=== PATIENT | male | born 1960 | race Caucasian/White ===

== ENCOUNTER 2016-07-14 10:20 | Emergency (ER) | payer OTHER ==
[2016-07-14 11:16] VITALS: BP 146/93
--- NOTE | 2016-07-14 11:49 | UC ---
Throat Pain/Nasal Sven HPI - HPI Summary HPI Summary: 2 weeks of worsening sinus pain and congestion, no fevers---has tried zyrtec without much relief - History of Current Complaint Chief Complaint: UCRespiratory Stated Complaint: SINUS COMPLAINT Time Seen by Provider: 07/14/16 11:44 Hx Obtained From: Patient Onset/Duration: Gradual Onset, Lasting Weeks - 2, Still Present Severity: Moderate Pain Intensity: 6 Pain Scale Used: 0-10 Numeric Associated Signs & Symptoms: Positive: Sinus Discomfort - Allergies/Home Medications Allergies/Adverse Reactions: Allergies Allergy/AdvReac Type Severity Reaction Status Date / Time Metformin Allergy Mild Diarrhea Verified 11/12/15 19:39 Ramipril [From Altace] AdvReac Mild Coughing Verified 11/12/15 19:39 PMH/Surg Hx/FS Hx/Imm Hx Previously Healthy: No Endocrine History Of: Reports: Diabetes - TYPE II--recent a1c 10.2, dose of insulin increased. Denies: Thyroid Disease Cardiovascular History Of: Reports: Hypertension - ON MEDICATION Denies: Cardiac Disorders Respiratory History Of: Reports: Asthma - A CHILD, Bronchitis - hx Denies: COPD GI/ History Of: Reports: Kidney Stones - 2000 Denies: Ulcer Neurological History Of: Reports: Migraine - 1x/month - Surgical History Surgical History: Yes Surgery Procedure, Year, and Place: RIGHT SHOULDER SURGERY. Right elbow surgery August 2013. CATARACT LEFT EYE- 2012. HYPOSPADIA SURGERY A CHILD. TONSILLECTOMY CHILD - Family History Known Family History: Positive: None, Hypertension, Diabetes - Social History Occupation: Employed Full-time Lives: With Family Alcohol Use: Rare Alcohol Amount: 1 Substance Use Type: None Smoking Status (MU): Never Smoked Tobacco Have You Smoked in the Last Year: No Household Exposure Type: Cigarettes - Immunization History Most Recent Influenza Vaccination: 01/14/2013 Most Recent Tetanus Shot: 2010 Most Recent Pneumonia Vaccination: none Review of Systems Constitutional: Fatigue Skin: Negative Eyes: Negative ENT: Ear Ache Respiratory: Negative Cardiovascular: Negative Gastrointestinal: Negative Genitourinary: Negative Motor: Negative Neurovascular: Negative Musculoskeletal: Negative Neurological: Headache - Maxillary sinus Psychological: Negative All Other Systems Reviewed And Are Negative: Yes Physical Exam Triage Information Reviewed: Yes Appearance: Well-Appearing, No Pain Distress, Well-Nourished Vital Signs: Initial Vital Signs Temp 97.2 F 07/14/16 11:11 Pulse 92 07/14/16 11:11 Resp 18 07/14/16 11:11 BP 146/93 07/14/16 11:11 Pulse Ox 97 07/14/16 11:11 Vital Signs Reviewed: Yes Eye Exam: Normal Eyes: Positive: Conjunctiva Clear ENT Exam: Normal ENT: Positive: Normal ENT inspection, Hearing grossly normal, Pharynx normal, TMs normal. Negative: Nasal congestion, Nasal drainage, Tonsillar swelling, Tonsillar exudate, Trismus, Muffled/hoarse voice Dental Exam: Normal Neck exam: Normal Neck: Positive: Supple, Nontender, No Lymphadenopathy Respiratory Exam: Normal Respiratory: Positive: Chest non-tender, Lungs clear, Normal breath sounds, No respiratory distress, No accessory muscle use Cardiovascular Exam: Normal Cardiovascular: Positive: RRR, No Murmur, Pulses Normal, Brisk Capillary Refill Musculoskeletal Exam: Normal Musculoskeletal: Positive: Strength Intact, ROM Intact, No Edema Neurological Exam: Normal Neurological: Positive: Alert, Muscle Tone Normal Psychological Exam: Normal Skin Exam: Normal Throat Pain/Nasal Course/Dx - Course Assessment/Plan: flnase, augmentin, mucinex d increase fluids, follow up with pcp - Differential Dx/Diagnosis Differential Diagnosis/HQI/PQRI: Pharyngitis, Sinusitis, URI Provider Diagnoses: Acute rhinnosinusitis, hypertension with a history on treatment Discharge - Discharge Plan Condition: Stable Disposition: HOME Prescriptions: Amoxicillin/Clavulanate TAB* [Augmentin TAB 875*] 875 mg PO BID #20 tab Fluticasone NASAL SPRAY 50MCG* [Flonase NASAL SPRAY 50MCG*] 2 spray BOTH NARES DAILY #1 btl Patient Education Materials: Rhinosinusitis (ED), Chronic Hypertension (ED), DASH Eating Plan (ED), How to Use Nasal [place] (ED) Referrals: Herbie Courtney MD [Primary Care Provider] - 2 Weeks (for blood pressure management and re-check)
== END 2016-07-14 12:03 | disposition home or self-care (01) ==
LOC: UCEAST 10:20
DX: J01.90 Acute sinusitis, unspecified (principal); E11.9 Type 2 diabetes mellitus without complications; I10 Essential (primary) hypertension; G43.909 Migraine, unspecified, not intractable, without status migrainosus; Z87.442 Personal history of urinary calculi; Z87.891 Personal history of nicotine dependence
CPT/HCPCS: 99212; G0463

== ENCOUNTER 2017-02-14 10:41 | Emergency (ER) | payer OTHER ==
--- NOTE | 2017-02-14 10:56 | UC ---
Respiratory Complaint HPI - HPI Summary HPI Summary: Pt presents with non-productive cough, chest congestion, sinus pain/pressure/ congestion for 10 days. Feels pain in his chest when he coughs. Has been taking an OTC cold and flu medication with little relief - unsure of ingredients. Denies sick contacts. No recent travel. No fevers or chills. No pain, N/V/D/C. BP is elevated at today's visit. Pt says he takes Losartan, but has not over the past few days due to illness. No headache, dizziness, change in vision, palpitations, or chest pain. - History of Current Complaint Chief Complaint: UCRespiratory Stated Complaint: COUGH HEAD/CHEST CONGESTION Time Seen by Provider: 02/14/17 10:56 Hx Obtained From: Patient Onset/Duration: Gradual Onset Timing: Constant Severity Initially: Mild Severity Currently: Moderate Character: Cough: Nonproductive Aggravating Factors: Exertion, Deep Breaths Alleviating Factors: OTC Meds Associated Signs And Symptoms: Positive: Pleuritic Chest Pain, URI, Sinus Discomfort. Negative: Dyspnea, Fever, Chills, Wheezing, Edema - Allergies/Home Medications Allergies/Adverse Reactions: Allergies Allergy/AdvReac Type Severity Reaction Status Date / Time Metformin Allergy Mild Diarrhea Verified 02/14/17 10:52 Ramipril [From Altace] AdvReac Mild Coughing Verified 02/14/17 10:52 PMH/Surg Hx/FS Hx/Imm Hx Previously Healthy: Yes Endocrine History: Diabetes, Dyslipidemia Cardiovascular History: Hypertension - Surgical History Surgical History: Yes Surgery Procedure, Year, and Place: RIGHT SHOULDER SURGERY. Right elbow surgery August 2013. CATARACT LEFT EYE- 2012. HYPOSPADIA SURGERY A CHILD. TONSILLECTOMY CHILD - Family History Known Family History: Positive: None, Hypertension, Diabetes - Social History Occupation: Employed Full-time Lives: With Family Alcohol Use: Rare Alcohol Amount: 1 Substance Use Type: None Smoking Status (MU): Never Smoked Tobacco Have You Smoked in the Last Year: No Household Exposure Type: Cigarettes - Immunization History Most Recent Influenza Vaccination: 01/14/2013 Most Recent Tetanus Shot: 2010 Most Recent Pneumonia Vaccination: none Review of Systems Constitutional: Negative Skin: Negative Eyes: Negative ENT: Sore Throat, Ear Ache, Nasal Discharge, Sinus Congestion, Sinus Pain/ Tenderness Respiratory: Shortness Of Breath, Cough Cardiovascular: Negative Gastrointestinal: Negative Neurological: Negative Psychological: Negative All Other Systems Reviewed And Are Negative: Yes Physical Exam Triage Information Reviewed: Yes Appearance: Well-Appearing, Well-Nourished Vital Signs Reviewed: Yes Eyes: Positive: Conjunctiva Clear, Other: - No papilledema ENT: Positive: Pharynx normal, Nasal congestion, Nasal drainage, TMs normal, TM bulging, TM dull, TM red, Sinus tenderness. Negative: Pharyngeal erythema, Tonsillar swelling, Tonsillar exudate Neck: Positive: Supple, Nontender, No Lymphadenopathy Respiratory: Positive: Chest non-tender, No respiratory distress, No accessory muscle use, Wheezing - Throughout. Negative: Crackles, Rhonchi Cardiovascular: Positive: RRR, No Murmur Neurological: Positive: Alert Psychological: Positive: Age Appropriate Behavior Skin: Negative: rashes Respiratory Course/Dx - Course Course Of Treatment: CXR negative today. Z-charmaine and Atrovent. In regards to his elevated BP - he is asymptomatic today. Will advise to take your at home BP medications and f/u with your PCP. - Differential Dx/Diagnosis Differential Diagnosis/HQI/PQRI: Bronchitis, Influenza, Lower Resp Infection, Sinusitis, Other - Pneumonia. Provider Diagnoses: Acute Bronchitis. Sinusitis. Elevated Blood Pressure Discharge - Discharge Plan Condition: Stable Disposition: HOME Prescriptions: Azithromyxin CHARMAINE (NF) [Z-Charmaine (Zithromax) 250 mg tabs #6] 2 tab PO .TODAY, THEN 1 DAILY #6 tab Ipratropium HFA INHALER(NF) [Atrovent Hfa Inhaler(NF)] 1 puff INH Q6H #1 mdi Patient Education Materials: Acute Bronchitis (ED) Referrals: Herbie Courtney MD [Primary Care Provider] - Additional Instructions: 1) Z-charmaine take as directed 2) Atrovent inhaler. One puff every 6 hours as needed for SOB/Cough/Wheezing. 3) Mucinex OTC 4) Resume your at home blood pressure medications and follow up with your PCP regarding your elevated blood pressure. If you develop a fever, SOB, chest pain, new or worsening symptoms - please call our office or go to ED
[2017-02-14 10:58] VITALS: BP 190/100
--- NOTE | 2017-02-14 11:46 | RAD ---
INDICATION: Cough COMPARISON: December 09, 2014 TECHNIQUE: PA and lateral dual-energy views were obtained. FINDINGS: Bones/Soft Tissues: There are no acute bony findings. Cardiomediastinal: The cardiomediastinal silhouette is normal. Lungs: There are no infiltrates. Pleura: There are no pleural effusions. Other: None IMPRESSION: NO ACTIVE DISEASE.
== END 2017-02-14 12:02 | disposition home or self-care (01) ==
LOC: UCEAST 10:41
DX: J20.9 Acute bronchitis, unspecified (principal); E11.9 Type 2 diabetes mellitus without complications; E78.5 Hyperlipidemia, unspecified; I10 Essential (primary) hypertension; J32.9 Chronic sinusitis, unspecified; R03.0 Elevated blood-pressure reading, without diagnosis of hypertension
CPT/HCPCS: 71020; 99212; G0463

== ENCOUNTER 2017-09-16 15:35 | Emergency (ER) | payer OTHER ==
[2017-09-16 17:02] LABS: ABS Basophils 0.1 10^3/ul (0-0.2); ABS Eosinophils 0.4 10^3/ul (0-0.6); ABS Lymphocytes 1.9 10^3/ul (1.0-4.8); ABS Monocytes 0.7 10^3/ul (0-0.8); ABS Neutrophils 7.1 10^3/ul (1.5-7.7); ABS Nucleated RBC 0 10^3/ul; Eosinophil % 3.8 % (0-6); Hematocrit 46 % (42-52); Lymphocyte % 18.4 % (25-47); Mean Corpuscular HGB Conc 35 g/dl (31-36); Mean Corpuscular Hemoglobin 32 pg (27-31); Mean Corpuscular Volume 93 fL (80-94); Mean Platelet Volume 7.5 um3 (7.4-10.4); Nucleated Red Blood Cells % 0; Platelet Count 208 10^3/ul (150-450); Red Blood Count 4.94 10^6/ul (4.0-5.4); Red Cell Distribution Width 14 % (10.5-15); White Blood Count 10.1 10^3/ul (3.5-10.8)
--- NOTE | 2017-09-16 17:05 | RAD ---
Indication: RIGHT hip pain and tenderness for 2 days without known injury. Previous dislocation. Unable to bear weight. Comparison: November 29, 2013 CT Technique: AP pelvis and AP and frog-leg lateral views RIGHT hip. Report: The RIGHT hip is normally located. No RIGHT hip or pelvic fracture or stress reaction evident. Minimal osteophytosis and mild superior joint space narrowing. Small focus of calcific tendinopathy at the level of the RIGHT hip gluteus minimus adductor insertion at the inferior posterior aspect of the anterior facet of the greater trochanter based on correlation with prior CT. Additionally there is a small focus of calcific tendinopathy at the RIGHT iliopsoas tendon insertion at the lesser trochanter. Unremarkable soft tissue contours. IMPRESSION: Mild osteoarthritis of the RIGHT hip and evidence for calcific tendinopathy at the gluteus minimus and iliopsoas tendon insertions.
[2017-09-16 17:26] LABS: EGFR Non-African American 88.4 (>60)
[2017-09-16] MEDS ORDERED: Ketorolac INJ* 30 MG/ML 1 ML VIAL IM ONE (17:34)
[2017-09-16] MEDS ORDERED: LORazepam TAB(*) 1 MG PO ONE (17:34)
[2017-09-16] MEDS ORDERED: predniSONE TAB* 20 MG PO ONE (19:24)
[2017-09-16] MEDS ORDERED: HYDROcodone/ACETAMIN 5-325 MG* 1 TAB PO ONE (19:25)
[2017-09-16 19:55] VITALS: BP 168/87
--- NOTE | 2017-09-16 21:42 | ED ---
eLs Henry Natalie, scribed for Ignacio Montoya MD on 09/16/17 at 1744 . Lower Extremity - HPI Summary HPI Summary: The patient is a 56 y/o M presenting to the ED c/o aching RLE pain on in the hip starting yesterday at 18:00. He has had intermittent pain here before due to a previous hip dislocation, but it became constant and more prominent last night, rated 9/10 in severity. He states he has been doing yard work and moving up and down, which has caused him some pain, but not like it is currently. The pain is not alleviated by anything, and it is aggravated by any form of movement , so he has not been able to move it. He has taken Aleve to treat the pain at 03 :00 this morning. He also reports that he drove for five hours last night from [place], [place] while his leg was in pain. - History of Current Complaint Chief Complaint: EDExtremityLower Stated Complaint: RT HIP PAIN Time Seen by Provider: 09/16/17 16:30 Hx Obtained From: Patient Mechanism Of Injury: Unknown Severity Initially: Moderate Severity Currently: Severe Pain Intensity: 9 Pain Scale Used: 0-10 Numeric Timing: Constant Location: Is Discrete @ - right hip Character Of Pain: Aching Aggravating Factor(s): Movement Alleviating Factor(s): Rest Able to Bear Weight: No - Allergies/Home Medications Allergies/Adverse Reactions: Allergies Allergy/AdvReac Type Severity Reaction Status Date / Time metformin AdvReac Mild Diarrhea Verified 09/16/17 15:47 ramipril AdvReac Mild Coughing Verified 06/13/17 10:33 Home Medications: Home Medications Aspirin EC TAB* [Ecotrin EC Low Dose 81 MG*] 162 mg PO DAILY 09/16/17 [History Confirmed 09/16/17] Cetirizine* [ZyrTEC 10 MG TAB*] 10 mg PO DAILY 09/16/17 [History Confirmed 09/16] Insulin LISPRO* [HumaLOG*] 0 units SUBCUT AC 09/16/17 [History Confirmed ] PMH/Surg Hx/FS Hx/Imm Hx Endocrine/Hematology History: Reports: Hx Diabetes - TYPE II--recent a1c 10.2, dose of insulin increased. Denies: Hx Thyroid Disease Cardiovascular History: Reports: Hx Hypertension - ON MEDICATION Respiratory History: Reports: Hx Asthma - A CHILD, Hx Chronic Bronchitis - in the past Denies: Hx Chronic Obstructive Pulmonary Disease (COPD) GI History: Denies: Hx Ulcer History: Reports: Hx Kidney Stones - 2000 Musculoskeletal History: Reports: Hx Orthopedic Injury, Hx Tendonitis Comment Only: Other Musculoskeletal History - surgery right elbow/shoulder Sensory History: Reports: Hx Cataracts - L eye, Hx Contacts or Glasses - GLASSES Denies: Hx Hearing Aid Opthamlomology History: Reports: Hx Cataracts - L eye, Hx Contacts or Glasses - GLASSES Neurological History: Reports: Hx Migraine - 1x/month - Cancer History Cancer Type, Location and Year: Pt has had 3 biopsy on prostate through years, enlarged prostate. Negative for CA as of now. - Surgical History Surgery Procedure, Year, and Place: RIGHT SHOULDER SURGERY. Right elbow surgery August 2013. CATARACT LEFT EYE- 2012. HYPOSPADIA SURGERY A CHILD. TONSILLECTOMY CHILD Hx Anesthesia Reactions: No Infectious Disease History: No Infectious Disease History: Denies: Hx Clostridium Difficile, Hx Hepatitis, Hx Human Immunodeficiency Virus (HIV), Hx of Known/Suspected MRSA, Hx Shingles, Hx Tuberculosis, Hx Known/ Suspected VRE, Hx Known/Suspected VRSA, History Other Infectious Disease, Traveled Outside the [place] in Last 30 Days - Family History Known Family History: Positive: Hypertension, Diabetes - Social History Alcohol Use: Rare Alcohol Amount: 1 Substance Use Type: Reports: None Hx Tobacco Use: No Smoking Status (MU): Never Smoked Tobacco Have You Smoked in the Last Year: No Review of Systems Negative: Fever Positive: Decreased ROM, Other - pain in right hip All Other Systems Reviewed And Are Negative: Yes Physical Exam - Summary Physical Exam Summary: Appearance: The patient is well-nourished in no acute distress and in no acute pain. Skin: The skin is warm and dry and skin color reflects adequate perfusion. HEENT: The head is normocephalic and atraumatic. The pupils are equal and reactive. The conjunctivae are clear and without drainage. Nares are patent and without drainage. Mouth reveals moist mucous membranes and the throat is without erythema and exudate. The external ears are intact. The ear canals are patent and without drainage. The tympanic membranes are intact. Neck: The neck is supple with full range of motion and non-tender. There are no carotid bruits. There is no neck vein distension. Respiratory: Chest is non-tender. Lungs are clear to auscultation and breath sounds are symmetrical and equal. Cardiovascular: Heart is regular rate and rhythm. There is no murmur or rub auscultated. There is no peripheral edema and pulses are symmetrical and equal. Abdomen: The abdomen is soft and non-tender. There are normal bowel sounds heard in all four quadrants and there is no organomegaly palpated. Musculoskeletal: There is no back tenderness noted. Extremities are non-tender with full range of motion except there is tenderness to any ROM and palpation of the right hip. There is good capillary refill. There is no peripheral edema or calf tenderness elicited. Neurological: Patient is alert and oriented to person, place and time. The patient has symmetrical motor strength in all four extremities. Cranial nerves are grossly intact. Deep tendon reflexes are symmetrical and equal in all four extremities. Psychiatric: The patient has an appropriate affect and does not exhibit any anxiety or depression. Triage Information Reviewed: Yes Vital Signs On Initial Exam: Initial Vitals Temp Pulse Resp BP Pulse Ox 97.6 F 89 20 173/91 96 09/16/17 15:43 09/16/17 15:43 09/16/17 15:43 09/16/17 15:43 09/16/17 15:43 Vital Signs Reviewed: Yes Diagnostics - Vital Signs Vital Signs Temp Pulse Resp BP Pulse Ox 09/16/17 15:43 97.6 F 89 20 173/91 96 - Laboratory Lab Results: Lab Results 09/16/17 09/16/17 09/16/17 Range/Units 16:47 16:47 16:47 WBC 10.1 (3.5-10.8) 10^3/ul RBC 4.94 (4.0-5.4) 10^6/ul Hgb 16.0 (14.0-18.0) g/dl Hct 46 (42-52) % MCV 93 (80-94) fL MCH 32 H (27-31) pg MCHC 35 (31-36) g/dl RDW 14 (10.5-15) % Plt Count 208 (150-450) 10^3/ul MPV 7.5 (7.4-10.4) um3 Neut % (Auto) 70.0 (38-83) % Lymph % (Auto) 18.4 L (25-47) % Coffee % (Auto) 7.3 H (0-7) % Eos % (Auto) 3.8 (0-6) % Baso % (Auto) 0.5 (0-2) % Absolute Neuts (auto) 7.1 (1.5-7.7) 10^3/ul Absolute Lymphs (auto) 1.9 (1.0-4.8) 10^3/ul Absolute Monos (auto) 0.7 (0-0.8) 10^3/ul Absolute Eos (auto) 0.4 (0-0.6) 10^3/ul Absolute Basos (auto) 0.1 (0-0.2) 10^3/ul Absolute Nucleated RBC 0 10^3/ul Nucleated RBC % 0 ESR 10 (0-20) mm/Hr Sodium 138 L (139-145) mmol/L Potassium 3.6 (3.5-5.0) mmol/L Chloride 102 (101-111) mmol/L Carbon Dioxide 27 (22-32) mmol/L Anion Gap 9 (2-11) mmol/L BUN 13 (6-24) mg/dL Creatinine 0.89 (0.67-1.17) mg/dL Est GFR ( Amer) 113.7 (>60) Est GFR (Non-Af Amer) 88.4 (>60) BUN/Creatinine Ratio 14.6 (8-20) Glucose 248 H (70-100) mg/dL Lactic Acid 1.9 (0.5-2.0) mmol/L Calcium 8.6 (8.6-10.3) mg/dL Total Bilirubin 0.50 (0.2-1.0) mg/dL AST 15 (13-39) U/L ALT 24 (7-52) U/L Alkaline Phosphatase 80 (34-104) U/L C-Reactive Protein 11.60 H (< 5.00) mg/L Total Protein 6.8 (6.4-8.9) g/dL Albumin 3.9 (3.2-5.2) g/dL Globulin 2.9 (2-4) g/dL Albumin/Globulin Ratio 1.3 (1-3) Result Diagrams: 09/16/17 16:47 09/16/17 16:47 Lab Statement: Any lab studies that have been ordered have been reviewed, and results considered in the medical decision making process. - Radiology Right Hip/Pelvis XR Xray Interpretation: Positive (See Comments) - Mild osteoarthritis of the RIGHT hip and evidence for calcific tendinopathy at the gluteus minimus and iliopsoas tendon insertions. ED physician has reviewed this report. Radiology Interpretation Completed By: Radiologist Re-Evaluation - Re-Evaluation First Eval Re-Evaluation Time: 19:00 Change: Improved - I spoke with the patient about imaging results and discharge home. Comment: I spoke with the patient about his XR results and discharge home. Lower Extremity Course/Dx - Course Course Of Treatment: Mr. Terrell has a long history of right hip pain. He has been working a lot outside this spring and for the last couple of days has had worsening pain in the right hip. He comes in essentially unable to move his hip without excruciating pain. There is no evidence for infection he is not febrile and his lab workup was WNL. X-ray of his right hip is read as calcific tendinitis as well as arthritis. I recommended rest and symptomatic treatment including crutches, a short course of steroids, pain medication and anti- inflammatories. - Diagnoses Provider Diagnoses: Calcific tendonitis Discharge - Sign-Out/Discharge Documenting (check all that apply): Discharge/Admit/Transfer - Discharge Plan Condition: Stable Disposition: HOME Prescriptions: HYDROcodone/ACETAMIN 5-325 MG* [[place] 5-325 TAB*] 1 tab PO Q6H PRN #20 tab MDD 4 PRN Reason: Pain Patient Education Materials: Calcific Tendinitis (ED) Forms: *Work Release Referrals: Herbie Courtney MD [Primary Care Provider] - John Kirkland MD [Medical Doctor] - 3 Days Additional Instructions: Take medication as prescribed. Follow up with Dr. Kirkland, orthopedics, in 2-3 days. Return to the emergency department for any new or worsening symptoms. - Billing Disposition and Condition Condition: STABLE Disposition: HOME The documentation as recorded by the Les bedoya Natalie accurately reflects the service I personally performed and the decisions made by me, Ignacio Montoya MD.
== END 2017-09-16 19:55 | disposition home or self-care (01) ==
LOC: ED 15:35
DX: M65.28 Calcific tendinitis, other site (principal); M16.11 Unilateral primary osteoarthritis, right hip; I10 Essential (primary) hypertension; E11.9 Type 2 diabetes mellitus without complications; Z79.4 Long term (current) use of insulin; Z88.8 Allergy status to other drugs, medicaments and biological substances; Z79.899 Other long term (current) drug therapy
CPT/HCPCS: 36415; 80053; 83605; 85025; 85652; 86140; 87040; 96372; 99283; A9270-GY; J1885; J7512

== ENCOUNTER 2017-12-02 18:10 | Emergency (ER) | payer OTHER ==
--- OUTSIDE RECORDS SUMMARY | 2017-12-02 18:15 | XMS REPORT ---
:1960 External Reference #:[id number] Author Organization [facility] Address [address] [place] [address] Phone [phone] Care Team Providers Name Role Phone Herbie Courtney M.D. 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 Active Onset: 06/25/2015 Presence of intraocular lens Joce Rodriguez M.D. Active Onset: 05/12/2016 Type 2 diab with mild nonp rtnop with Joce Rodriguez M.D. Active macular edema, l eye Onset: 05/12/2016 Type 2 diab with mod nonp rtnop Joce Rodriguez M.D. Active without macular edema, r eye Onset: 08/08/2016 Type 2 diab with moderate nonp rtnop Joce Rodriguez M.D. Active with macular edema, bi Onset: 11/28/2016 Type 2 diab with mod nonp rtnop Joce Rodriguez M.D. Active without macular edema, bi Onset: 05/07/2017 Retinal edema Joce Rodriguez M.D. Active Onset: 08/06/2017 Type 2 diab with mod nonp rtnop with Joce Rodriguez M.D. 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 Work Status Full-Time Employment ETOH Use Rarely consumes alcohol Smoking Patient has never smoked Recreational Drug Use Denies Drug Use Daily Caffeine Consumes on average 2 cups of regular coffee per day Allergies, Adverse Reactions, Alerts Date Description Reaction Status Severity Comments 06/16/2015 NKDA active Medications Medication Date Status Form Strength Qnty SIG Indications Ordering Provider Vitamin C Active Chewtabs 125mg eHrbie Courtney, Adult Gummies 016 M.D. [place] 3 Active Capsules 1000mg 1 by Unknown 016 mouth every day Propranolol Active Tablets 60mg ER Unknown HCL 000 Humalog Active Solution 100Unit/ML Unknown Kwikpen 000 Pen-Inject Lantus Active Solution 100Unit/ML Unknown 000 Multi For Him Active Capsules Unknown 000 Vitamin D Active Tablets 1000Unit every Unknown 000 day Losartan Active Tablets 100mg Unknown Potassium 000 Cetirizine Active Solution 5mg/5ML 1 tab po Unknown 000 daily Medications Administered in Office Medication Date Status Form Strength Qnty SIG Indications Ordering Provider Avastin Administered Injection Joce Cabrera Bevacizumab Argelia Rodriguez M.D. Avastin Administered Injection Joce Cabrera Bevacizumab Argelia Rodriguez M.D. Avastin Administered Injection Joce Cabrera Bevacizumab Anastacia Rodriguez M.D. Avastin Administered Injection Joce Cabrera Bevacizumab Anastacia Rodriguez M.D. Avastin Administered Injection Joce Rodriguez M.D. Avastin Administered Injection Joce Rodriguez M.D. Avastin Administered Injection Joce Freire 017 Romina Rodriguez Avastin Administered Injection Joce Cabrera Bevacizumab 017 Romina Rodriguez Avastin Administered Injection Joce Cabrera Bevacizumab 017 Romina Rodriguez Avastin Administered Injection Joce Cabrera Bevacizumab 017 Romina Rodriguez Crizal Administered Injection Blanca Vandana Genaro [facility] Vital Signs Date Vital Result Comment 08/13/2017 BP Systolic 120 mmHg BP Diastolic 82 mmHg Heart Rate 88 /min Respiratory Rate 16 /min 08/06/2017 BP Systolic 132 mmHg BP Diastolic 80 mmHg Heart Rate 74 /min Respiratory Rate 16 /min 05/07/2017 BP Systolic 146 mmHg BP Diastolic 91 mmHg Heart Rate 74 /min Respiratory Rate 16 /min 04/23/2017 BP Systolic 175 mmHg BP Diastolic 103 mmHg Heart Rate 74 /min Respiratory Rate 16 /min 11/13/2016 BP Systolic 132 mmHg BP Diastolic 84 mmHg Heart Rate 72 /min Respiratory Rate 16 /min 11/06/2016 BP Systolic 138 mmHg BP Diastolic 82 mmHg Heart Rate 68 /min Respiratory Rate 15 /min 10/09/2016 BP Systolic 142 mmHg BP Diastolic 84 mmHg Heart Rate 82 /min Respiratory Rate 16 /min 09/04/2016 BP Systolic 148 mmHg BP Diastolic 92 mmHg Heart Rate 64 /min Respiratory Rate 12 /min 08/28/2016 BP Systolic 132 mmHg BP Diastolic 76 mmHg Heart Rate 68 /min Respiratory Rate 14 /min 08/25/2016 BP Systolic 115 mmHg BP Diastolic 90 mmHg Heart Rate 80 /min Respiratory Rate 16 /min 07/24/2016 BP Systolic 152 mmHg BP Diastolic 88 mmHg Heart Rate 58 /min Respiratory Rate 16 /min 07/11/2016 BP Systolic 127 mmHg BP Diastolic 85 mmHg Heart Rate 72 /min Respiratory Rate 16 /min 05/23/2016 BP Systolic 150 mmHg BP Diastolic 88 mmHg Heart Rate 76 /min Respiratory Rate 14 /min 05/16/2016 BP Systolic 202 mmHg BP Diastolic 118 mmHg Heart Rate 90 /min Respiratory Rate 14 /min Results Description No Information Procedures Date CPT Code Description Status 08/13/2017 91636 Destruction Lesion Retina, Photocoagulation Completed 08/06/2017 68617 Destruction Lesion Retina, Photocoagulation Completed 07/26/2017 05780 Scanning Computerized Opthalmic Diagnostic Posterior Completed Seg Retina 07/26/2017 71180 Est Patient Comprehensive Exam Completed 05/07/2017 30385 Injection Intravitreal Of A Pharmacologic Agent Completed 04/23/2017 32772 Scanning Computerized Opthalmic Diagnostic Posterior Completed Seg Retina 04/23/2017 26178 Est Patient Intermediate Exam Completed 04/23/2017 17194 Injection Intravitreal Of A Pharmacologic Agent Completed 11/28/2016 74271 Scanning Computerized Opthalmic Diagnostic Posterior Completed Seg Retina 11/28/2016 99153 Est Patient Comprehensive Exam Completed 11/13/2016 23968 Injection Intravitreal Of A Pharmacologic Agent Completed 11/06/2016 88572 Injection Intravitreal Of A Pharmacologic Agent Completed 10/09/2016 08827 Injection Intravitreal Of A Pharmacologic Agent Completed 09/04/2016 34025 Injection Intravitreal Of A Pharmacologic Agent Completed 08/28/2016 53866 Injection Intravitreal Of A Pharmacologic Agent Completed 08/25/2016 37032 Destruction Lesion Retina, Photocoagulation Completed 08/08/2016 07266 Scanning Computerized Opthalmic Diagnostic Posterior Completed Seg Retina 08/08/2016 54446 Est Patient Comprehensive Exam Completed 07/24/2016 99208 Injection Intravitreal Of A Pharmacologic Agent Completed 07/11/2016 31697 Injection Intravitreal Of A Pharmacologic Agent Completed 05/23/2016 99664 Destruction Lesion Retina, Photocoagulation Completed 05/16/2016 93418 Injection Intravitreal Of A Pharmacologic Agent Completed 05/12/2016 22258 Est Patient Comprehensive Exam Completed 05/12/2016 06001 Scanning Computerized Opthalmic Diagnostic Posterior Completed Seg Retina 12/07/2015 76450 Scanning Computerized Opthalmic Diagnostic Posterior Completed Seg Retina 12/07/2015 65423 Est Patient Intermediate Exam Completed 06/25/2015 81901 Scanning Computerized Opthalmic Diagnostic Posterior Completed Seg Retina 06/25/2015 22089 Est Patient Comprehensive Exam Completed 09/07/2012 66845 Est Patient Intermediate Exam Completed 08/21/2012 68961 Extracapsular Cataract Extraction W/Intraocular Lens Completed 08/13/2012 28380 Ophthalmic Biometry Completed 08/13/2012 12050 Scanning Computerized Opthalmic Diagnostic Posterior Completed Seg Retina 12/19/2011 19919 Computerized Corneal Topography Completed 12/19/2011 23753 Scanning Computerized Opthalmic Diagnostic Posterior Completed Seg Retina 12/19/2011 19414 Ophthalmic Biometry Completed 10/30/2011 44135 Scanning Computerized Opthalmic Diagnostic Posterior Completed Seg Retina 10/30/2011 95675 Est Patient Comprehensive Exam Completed 10/26/2010 79675 Determination Of Refractive State Completed 10/26/2010 74486 New Patient Comprehensive Exam Completed 09/23/2007 22968 Determination Of Refractive State Completed 09/23/2007 12148 Est Patient Comprehensive Exam Completed 09/21/2006 07419 Determination Of Refractive State Completed 09/21/2006 13382 Est Patient Comprehensive Exam Completed 09/21/2005 47549 Determination Of Refractive State Completed 09/21/2005 19691 Est Patient Comprehensive Exam Completed 05/27/2002 113 Crizal Completed Encounters Type Date Location Provider CPT E/M Dx Office Visit 08/13/2012 8:45a Joce Rodriguez MD, Joce Rodriguez, 34662 366.16 pc M.D. 250.50 362.01 Office Visit 12/19/2011 12:45p Joce Rodriguez MD, Joce Rodriguez, 26497 366.16 pc M.D. 250.50 362.01 Office Visit 12/12/2011 9:15a Joce Rodriguez MD, Yasmin Fu O.D. 95747 250.50 pc 362.01 Office Visit 11/20/2011 7:00p Joce Rodriguez MD, Yasmin Fu O.D. 13327 250.50 pc 362.01 Plan of Care 2017 - Joce Rodriguez M.D.E11.3393 Type 2 diab with mod nonp rtnop without macular edema, biComments:Smoking can increase the risk of developing or worsening any eye related disease, as well as affect your overall health. If you are a smoker, we strongly recommend that you quit.If you are not a smoker , we strongly recommend that you do not start. I can detect diabetic changes in your eyes. Proper control of your diabetes is important for the health of your eyes. It is important that you keep all of your follow up appointments. Dr. Rodriguez has sent a report to your primary care doctor, letting them know the current status of your retina.Follow up:3 Month Follow Up OCT MAC You can expect to have your eyes dilated at your next visit. If Dr. Rodriguez orders any additional testing, it may require extra time. We recommend that you bring sunglasses,as dilation drops often make you light sensitive until they wear off. We always recommend you bring someone to drive you home if you are uncomfortable driving with your eyes dilated. If you have any questions before your next visit, feel free to call our office at .Z96.1 Presence of intraocular lensComments:The artificial lens implant in your left eye appears to be stable at this time.H25.11 Age-related nuclear cataract, right eyeComments:You have been diagnosed with a cataract in the right eye. If you are happy with your vision as it is, we will see you at your next scheduled appointment. If you feel like your vision is getting worse before your scheduled appointment, please call Toshia or Jennifer at [phone].
--- NOTE | 2017-12-02 21:18 | UC ---
General HPI - HPI Summary HPI Summary: 57 y/o male presents to the urgent care c/o B/L upper and lower extremities muscle pain and weakness since Sunday11/30/2017. Pt reports PMHX of DM type II uncontrolled and HTN. Pt takes insulin since he allergic to Metformin PO. He didn't take it today and his last HgA1C was 10.2. Pt reports weakness is getting progressively worse since today he can't open a bottle of water. He also states sore throat w/ decrease appetite today w/ a thickness sensation when he swallows. Muscle pain is 4-6/10 and is sharp at touch. His B/L thigh muscle pain is worse when he stand up from a sitting position. He is also waking w/ some difficulty due to pain. Pt states he has appt w/ PCP to r/o neuropathy in 3 weeks. Pt denies numbness or tingling sensation over all extremities, throat tightening, SOB, chest pain, JUAREZ, dizziness, abdominal pain, N/V/D, fever, rash, Hx of tick bites, recent travel outside the country or weight loss. Pt has taken Motrin 400mg PO around 1600pm to alleviate symptoms today. - History of Current Complaint Chief Complaint: UCGeneralIllness Stated Complaint: ACHES IN ARMS AND LEGS Time Seen by Provider: 12/02/17 20:49 Hx Obtained From: Patient Onset/Duration: Gradual Onset, Lasting Days - 3 days, Still Present, Worse Since - today Timing: Constant Onset Severity: Mild Current Severity: Mild Pain Intensity: 4 Pain Location at: B/L fore arms and b/L lower leg muscle pain at touch - Allergy/Home Medications Allergies/Adverse Reactions: Allergies Allergy/AdvReac Type Severity Reaction Status Date / Time metformin AdvReac Mild Diarrhea Verified 12/02/17 22:28 ramipril AdvReac Mild Coughing Verified 12/02/17 22:28 PMH/Surg Hx/FS Hx/Imm Hx Previously Healthy: Yes Endocrine History: Diabetes Cardiovascular History: Hypertension - Surgical History Surgical History: Yes Surgery Procedure, Year, and Place: APP2013. RIGHT SHOULDER SURGERY. Right elbow surgery August 2013. CATARACT LEFT EYE- 2012. HYPOSPADIA SURGERY A CHILD. TONSILLECTOMY CHILD - Family History Known Family History: Positive: Hypertension, Diabetes - Social History Occupation: Employed Full-time Lives: With Family Alcohol Use: Rare Alcohol Amount: 1 Substance Use Type: None Smoking Status (MU): Never Smoked Tobacco Have You Smoked in the Last Year: No Household Exposure Type: Cigarettes - Immunization History Most Recent Influenza Vaccination: 01/14/2013 Most Recent Tetanus Shot: 2010 Most Recent Pneumonia Vaccination: none Review of Systems Constitutional: Fatigue, Other - decrease appetite Skin: Negative Eyes: Negative ENT: Sore Throat Respiratory: Negative Cardiovascular: Negative Gastrointestinal: Negative Genitourinary: Negative Motor: Weakness - B/L uppwer and lower extremties Neurovascular: Negative Musculoskeletal: Other: - B/L upper and lower muscle pain Neurological: Weakness - B/L upper and lower extremities Psychological: Negative Is Patient Immunocompromised?: No All Other Systems Reviewed And Are Negative: Yes Physical Exam - Summary Physical Exam Summary: Vital Signs Reviewed: Yes General: well developed, well nourished male sitting in the examianing table w/ o any apparent respiratory distress. Eyes: Positive: Conjunctiva Clear - PERRLA, EOMI, fundi grossly normal ENT: Positive: Normal ENT inspection, Hearing grossly normal, Pharynx mild erythema, TMs normal - B/L external ear canal clear, B/L TM's WNL, Other: - no maxillary or frontal sinus tenderness on percussion. Negative: Tonsillar swelling, Tonsillar exudate Dental Exam: Normal Neck: Positive: Supple, Nontender, No Lymphadenopathy Respiratory: Positive: Chest non-tender, Lungs clear, Normal breath sounds Cardiovascular: Positive: RRR, No Murmur, Pulses Normal, Brisk Capillary Refill Abdomen Description: Positive: Nontender, No Organomegaly, Soft. Negative: CVA Tenderness (R), CVA Tenderness (L) Bowel Sounds: Positive: Present Musculoskeletal Exam: Normal Musculoskeletal: Positive: decrease muscle strength in the distal forearm and hands, FROM Intact, No Edema. B/L forearms, B/L thighs and B/L lower legs muscle tenderness on palpation Neurological Exam: Normal Neurological: Positive: Alert, Muscle Tone Normal, -Neuro: A&O x4, GCS 15, CN II -XII intact, no focal neuro deficits, normal [id number] or [id number] testing. Romberg neg, no pronator drift, normal rapid alternating movements. Gait is normal, reflexes WNL Psychological Exam: Normal Skin Exam: Normal Triage Information Reviewed: Yes Vital Signs: Initial Vital Signs Temp 99.2 F 08/19/18 18:55 Pulse 89 12/02/17 18:55 Resp 16 12/02/17 18:55 BP 163/94 12/02/17 18:55 Pulse Ox 97 12/02/17 18:55 Course/Dx - Course Course Of Treatment: 57 y/o male presents to the urgent care c/o B/L upper and lower extremities muscle pain and weakness since Sunday11/30/2017. Pt reports PMHX of DM type II uncontrolled and HTN. Pt takes insulin since he allergic to Metformin PO. He didn't take it today and his last HgA1C was 10.2. Pt reports weakness is getting progressively worse since today he can't open a bottle of water. He also states sore throat w/ decrease appetite today w/ a thickness sensation when he swallows. Muscle pain is 4-6/10 and is sharp at touch. His B/ L thigh muscle pain is worse when he stand up from a sitting position. He is also waking w/ some difficulty due to pain. Pt states he has appt w/ PCP to r/o neuropathy in 3 weeks. Pt denies numbness or tingling sensation over all extremities, throat tightening, SOB, chest pain, JUAREZ, dizziness, abdominal pain, N/V/D, fever, rash, Hx of tick bites, recent travel outside the country or weight loss. Pt has taken Motrin 400mg PO around 1600pm to alleviate symptoms today. Hx obtained. Pt w/ decrease muscle strength in the distal forearm and hands, FROM Intact, No Edema. B/L forearms, B/L thighs and B/L lower legs muscle tenderness on palpation. Neuro exam WNL on examination. UA ordered: negative, FSmg/dl, rapid strep test negative. It seems Pt sore throat may be related the muscle weakness since Pt states he feels like a thickness when he swallows. Pt denies Hx of tick bites. However as per records in 2014 w/ possible tick bite. At this moment Pt needs blood work to r/o any lactic acidosis or rhabdomyolisis or any myopathy or neuropahty or even lyme disease. Pt's symptoms disccused w/ Dr Dominguez who evaluated Pt and she strongly recommended Pt to go to the ER for further management. Pt offered ambulance transfer and explained risk and benefits. Pt declined ambulance transfer and states he will go by private car. I spoke to Charge Nurse Frederick at the [facility] and presented Pt's symptoms. [facility] accepted Pt. Pt understood and agreed w/ plan of care and left the clinic ambulating and Hemodynamically stable. - Differential Dx - Multi-Symptom Differential Diagnoses: Metabolic Abnormality, Other - myalgia, myopathy, rhabdomyolisis, lyme disease, DM neuropathy Provider Diagnoses: 1- B/L upper and lower extremities weakness. 2- Musckeloskeletal pain - Physician Notifications Discussed Patient Care With: Jyotsna Dominguez - Dr Dominguez agreed w/ Pt's plan of care Discharge - Sign-Out/Discharge Documenting (check all that apply): Patient Departure - Pt highly recommended to go to the ER for further management in his presenting symptoms. Pt agreed to go by private car - Discharge Plan Condition: Stable Disposition: HOME-RECOMMEND TO ED Patient Education Materials: Weakness (ED), Musculoskeletal Pain (ED) Referrals: Herbie Courtney MD [Primary Care Provider] - Additional Instructions: I think you need a higher level or care for your presenting symptoms. I highly recommend you to go to the ER for further evaluation and treatment. The risks of not going can be , myopathy, rabdomyolisis, heart attack, etc. I spoke to the ER charge Nurse Vicky . They are expecting you. - Billing Disposition and Condition Condition: STABLE Disposition: Home-Recommend to ED
[2017-12-02 22:06] VITALS: BP 170/68
== END 2017-12-02 21:55 | disposition home health service (06) ==
LOC: UCEAST 18:10
DX: R53.1 Weakness (principal); M79.1 Myalgia; E11.65 Type 2 diabetes mellitus with hyperglycemia; I10 Essential (primary) hypertension; Z79.4 Long term (current) use of insulin; Z88.8 Allergy status to other drugs, medicaments and biological substances
CPT/HCPCS: 81003; 87651; 99212; G0463

== ENCOUNTER 2017-12-02 22:24 | Emergency (ER) | payer OTHER ==
[2017-12-02] MEDS ORDERED: NS 0.9% 1000 ML* 1,000 ML IV ONE ×2 (22:53→23:58)
[2017-12-02 23:07] LABS: ABS Basophils 0 10^3/ul (0-0.2); ABS Eosinophils 0.4 10^3/ul (0-0.6); ABS Lymphocytes 1.5 10^3/ul (1.0-4.8); ABS Monocytes 0.5 10^3/ul (0-0.8); ABS Neutrophils 3.6 10^3/ul (1.5-7.7); ABS Nucleated RBC 0 10^3/ul; Eosinophil % 6.9 % (0-6); Hematocrit 44 % (42-52); Hemoglobin 15.4 g/dl (14.0-18.0); Lymphocyte % 25.4 % (25-47); Mean Corpuscular HGB Conc 35 g/dl (31-36); Mean Corpuscular Hemoglobin 33 pg (27-31); Mean Corpuscular Volume 94 fL (80-94); Mean Platelet Volume 7.5 um3 (7.4-10.4); Nucleated Red Blood Cells % 0; Platelet Count 193 10^3/ul (150-450); Red Blood Count 4.73 10^6/ul (4.00-5.40); Red Cell Distribution Width 14 % (10.5-15); White Blood Count 6.1 10^3/ul (3.5-10.8)
--- NOTE | 2017-12-02 23:22 | ED ---
Complex/Multi-Sys Presentation - HPI Summary HPI Summary: 57-year-old insulin-dependent diabetic presents with three-day history of muscle aches largely in both calves. He notes that his blood sugars have been around 250. There are always difficult to control. He denies any fevers, tick bites, joint aches, rashes, chest pain or shortness of breath. It is painful to walk. He denies any family history of rheumatologic condition. He was seen in urgent care prior to this and had a strep test done which was negative for a tight throat and also urinalysis was negative. - History Of Current Complaint Chief Complaint: EDGeneral Time Seen by Provider: 12/02/17 23:01 Hx Obtained From: Patient Onset/Duration: Gradual Onset Timing: Constant - Allergies/Home Medications Allergies/Adverse Reactions: Allergies Allergy/AdvReac Type Severity Reaction Status Date / Time metformin AdvReac Mild Diarrhea Verified 12/02/17 22:28 ramipril AdvReac Mild Coughing Verified 12/02/17 22:28 PMH/Surg Hx/FS Hx/Imm Hx Previously Healthy: No - hypertension, diabetes insulin-dependent Endocrine/Hematology History: Reports: Hx Diabetes - TYPE II--recent a1c 10.2, dose of insulin increased. Denies: Hx Thyroid Disease Cardiovascular History: Reports: Hx Hypertension - ON MEDICATION Respiratory History: Reports: Hx Asthma - A CHILD, Hx Chronic Bronchitis - in the past Denies: Hx Chronic Obstructive Pulmonary Disease (COPD) GI History: Denies: Hx Ulcer History: Reports: Hx Kidney Stones - 2000 Musculoskeletal History: Reports: Hx Orthopedic Injury, Hx Tendonitis Comment Only: Other Musculoskeletal History - surgery right elbow/shoulder Sensory History: Reports: Hx Cataracts - L eye, Hx Contacts or Glasses - GLASSES Denies: Hx Hearing Aid Opthamlomology History: Reports: Hx Cataracts - L eye, Hx Contacts or Glasses - GLASSES Neurological History: Reports: Hx Migraine - 1x/month - Cancer History Cancer Type, Location and Year: Pt has had 3 biopsy on prostate through years, enlarged prostate. Negative for CA as of now. - Surgical History Surgery Procedure, Year, and Place: [id number]. RIGHT SHOULDER SURGERY. Right elbow surgery August 2013. CATARACT LEFT EYE- 2012. HYPOSPADIA SURGERY A CHILD. TONSILLECTOMY CHILD Hx Anesthesia Reactions: No Infectious Disease History: No Infectious Disease History: Denies: Hx Clostridium Difficile, Hx Hepatitis, Hx Human Immunodeficiency Virus (HIV), Hx of Known/Suspected MRSA, Hx Shingles, Hx Tuberculosis, Hx Known/ Suspected VRE, Hx Known/Suspected VRSA, History Other Infectious Disease, Traveled Outside the [place] in Last 30 Days - Family History Known Family History: Positive: None, Hypertension, Diabetes, Other - son has ulcerative colitis, mother and father have no rheumatologic co - Social History Alcohol Use: Rare Alcohol Amount: 1 Substance Use Type: Reports: None Hx Tobacco Use: No Smoking Status (MU): Never Smoked Tobacco Have You Smoked in the Last Year: No Review of Systems Negative: Fever, Chills, Fatigue Eyes: Negative Cardiovascular: Negative Respiratory: Negative Gastrointestinal: Negative Positive: other - denies Tea colored urine Positive: Myalgia, Decreased ROM. Negative: Arthralgia, Edema Negative: Rash Negative: Weakness, Paresthesia, Numbness All Other Systems Reviewed And Are Negative: Yes Physical Exam Triage Information Reviewed: Yes Vital Signs On Initial Exam: Initial Vitals Temp Pulse Resp BP Pulse Ox 97.7 F 85 16 177/92 98 12/02/17 22:25 12/02/17 22:25 12/02/17 22:25 12/02/17 22:25 12/02/17 22:25 Vital Signs Reviewed: Yes Appearance: Positive: Well-Appearing, No Pain Distress, Well-Nourished Skin: Positive: Warm, Skin Color Reflects Adequate Perfusion, Dry Eyes: Positive: EOMI ENT: Positive: Normal ENT inspection, Hearing grossly normal. Negative: Tonsillar swelling, Tonsillar exudate Neck: Positive: Supple, Nontender Respiratory/Lung Sounds: Positive: Clear to Auscultation, Breath Sounds Present Cardiovascular: Positive: RRR, Pulses are Symmetrical in both Upper and Lower Extremities Abdomen Description: Positive: Nontender, No Organomegaly, Soft Musculoskeletal: Positive: Other - Tenderness to palpation right calf without edema, induration or mass. Pain with walking. Neurological: Positive: Normal, Sensory/Motor Intact, Alert, Oriented to Person Place, Time Psychiatric: Positive: Normal AVPU Assessment: Alert Diagnostics - Vital Signs Vital Signs Temp Pulse Resp BP Pulse Ox 12/02/17 22:45 79 97 12/02/17 22:43 82 171/101 96 12/02/17 22:25 97.7 F 85 16 177/92 98 - Laboratory Lab Results: Lab Results 12/02/17 Range/Units 23:00 WBC 6.1 (3.5-10.8) 10^3/ul RBC 4.73 (4.00-5.40) 10^6/ul Hgb 15.4 (14.0-18.0) g/dl Hct 44 (42-52) % MCV 94 (80-94) fL MCH 33 H (27-31) pg MCHC 35 (31-36) g/dl RDW 14 (10.5-15) % Plt Count 193 (150-450) 10^3/ul MPV 7.5 (7.4-10.4) um3 Neut % (Auto) 58.8 (38-83) % Lymph % (Auto) 25.4 (25-47) % Simpson % (Auto) 8.1 H (0-7) % Eos % (Auto) 6.9 H (0-6) % Baso % (Auto) 0.8 (0-2) % Absolute Neuts (auto) 3.6 (1.5-7.7) 10^3/ul Absolute Lymphs (auto) 1.5 (1.0-4.8) 10^3/ul Absolute Monos (auto) 0.5 (0-0.8) 10^3/ul Absolute Eos (auto) 0.4 (0-0.6) 10^3/ul Absolute Basos (auto) 0 (0-0.2) 10^3/ul Absolute Nucleated RBC 0 10^3/ul Nucleated RBC % 0 Result Diagrams: 12/02/17 23:00 12/02/17 23:00 Lab Statement: Any lab studies that have been ordered have been reviewed, and results considered in the medical decision making process. 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 Complex Multi-Symp Course/Dx Course Of Treatment: Patient with increased exertion in the heat over the last few days now with muscle aches in his calves. CPK is elevated. 2 L of fluid given here. No darkening of the urine. Mild rhabdo. Not on metformin. Patient will be out of physical exertion for the next 5 days and should hydrate well. Recommend repeat BMP, CPK in 2 days. - Diagnoses Differential Diagnoses/HQI/PQRI: Other - Rheumatologic condition, rhabdo, muscle strains, Lyme disease Provider Diagnoses: Bilateral calf pain, Exertional rhabdomyolysis Discharge - Sign-Out/Discharge Documenting (check all that apply): Patient Departure - Discharge Plan Condition: Improved Disposition: HOME Patient Education Materials: Rhabdomyolysis (ED) Referrals: Herbie Courtney MD [Primary Care Provider] - Additional Instructions: See your doctor in 1-2 days for repeat BMP, CPK. Do not take any cholesterol lowering medication or metformin. Return if worse, darkening of the urine, new symptoms or other concerns as discussed. Avoid ibuprofen. Use Tylenol for any discomfort. Ice sore muscles. - Billing Disposition and Condition Condition: IMPROVED Disposition: Home
[2017-12-02 23:23] LABS: EGFR Non-African American 116.2 (>60)
[2017-12-03 02:26] VITALS: BP 136/86
== END 2017-12-03 02:26 | disposition home or self-care (01) ==
LOC: ED 22:24
DX: M79.662 Pain in left lower leg (principal); M79.661 Pain in right lower leg; M62.82 Rhabdomyolysis; E11.9 Type 2 diabetes mellitus without complications; Z79.4 Long term (current) use of insulin; I10 Essential (primary) hypertension; Z88.8 Allergy status to other drugs, medicaments and biological substances
CPT/HCPCS: 36415; 80053; 82550; 85025; 85652; 86140; 86618; 96360; 96361; 99284

== ENCOUNTER 2018-01-22 18:03 | Emergency (ER) | payer OTHER ==
[2018-01-22 18:12] VITALS: BP 155/93
--- NOTE | 2018-01-22 18:35 | ED ---
Throat Pain/Nasal Congestion - HPI Summary HPI Summary: purulent drainage from the nose , greenish with associated cough for the last one week. symptoms have persisted despite otc medications. hx. of asthma as a child, no fever or chills. not currently using any medications for his asthma, as he has no symptoms of asthma as an adult - History of Current Complaint Chief Complaint: UCRespiratory Time Seen by Provider: 01/22/18 18:25 Hx Obtained From: Patient Onset/Duration: Lasting Days Severity: Moderate Associated Signs And Symptoms: Positive: Sinus Discomfort Cough: Productive - Epiglottits Risk Factors Epiglottis Risk Factors: Negative - Allergies/Home Medications Allergies/Adverse Reactions: Allergies Allergy/AdvReac Type Severity Reaction Status Date / Time ramipril AdvReac Mild Coughing Verified 01/22/18 18:12 Home Medications: Home Medications Ascorbic Acid TAB* [Vitamin C TAB*] 500 mg PO DAILY 01/22/18 [History Confirmed 01/22/18] Empagliflozin [Jardiance] 10 mg PO 01/22/18 [History] Multivitamin [Multivitamins] 1 cap PO 01/22/18 [History] PMH/Surg Hx/FS Hx/Imm Hx Previously Healthy: Yes Endocrine/Hematology History: Reports: Hx Diabetes - TYPE II Denies: Hx Thyroid Disease Cardiovascular History: Reports: Hx Hypertension - ON MEDICATION Respiratory History: Reports: Hx Asthma - A CHILD, Hx Chronic Bronchitis - in the past Denies: Hx Chronic Obstructive Pulmonary Disease (COPD) GI History: Denies: Hx Ulcer History: Reports: Hx Kidney Stones - 2000 Musculoskeletal History: Reports: Hx Orthopedic Injury, Hx Tendonitis Comment Only: Other Musculoskeletal History - surgery right elbow/shoulder Sensory History: Reports: Hx Cataracts - L eye, Hx Contacts or Glasses - GLASSES Denies: Hx Hearing Aid Opthamlomology History: Reports: Hx Cataracts - L eye, Hx Contacts or Glasses - GLASSES Neurological History: Reports: Hx Migraine - 1x/month - Cancer History Cancer Type, Location and Year: Pt has had 3 biopsy on prostate through years, enlarged prostate. Negative for CA as of now. - Surgical History Surgery Procedure, Year, and Place: APP2013. RIGHT SHOULDER SURGERY. Right elbow surgery August 2013. CATARACT LEFT EYE- 2012. HYPOSPADIA SURGERY A CHILD. TONSILLECTOMY CHILD Hx Anesthesia Reactions: No Infectious Disease History: No Infectious Disease History: Denies: Hx Clostridium Difficile, Hx Hepatitis, Hx Human Immunodeficiency Virus (HIV), Hx of Known/Suspected MRSA, Hx Shingles, Hx Tuberculosis, Hx Known/ Suspected VRE, Hx Known/Suspected VRSA, History Other Infectious Disease, Traveled Outside the [place] in Last 30 Days - Family History Known Family History: Positive: None, Hypertension, Diabetes, Other - son has ulcerative colitis, mother and father have no rheumatologic co - Social History Alcohol Use: Occasionally Alcohol Amount: 1 Substance Use Type: Reports: None Hx Tobacco Use: No Smoking Status (MU): Never Smoked Tobacco Have You Smoked in the Last Year: No Review of Systems Constitutional: Negative Eyes: Negative Positive: Other - facial pain Cardiovascular: Negative Respiratory: Negative Gastrointestinal: Negative Genitourinary: Negative Musculoskeletal: Negative Skin: Negative Neurological: Negative All Other Systems Reviewed And Are Negative: Yes Physical Exam Triage Information Reviewed: Yes Vital Signs On Initial Exam: Initial Vitals Temp Pulse Resp BP Pulse Ox 35.7 C 84 18 155/93 97 01/22/18 18:09 01/22/18 18:09 01/22/18 18:09 01/22/18 18:09 01/22/18 18:09 Vital Signs Reviewed: Yes Appearance: Positive: Well-Appearing Skin: Positive: Warm, Dry Head/Face: Positive: Normal Head/Face Inspection, Other - left maxillary sinus tenderness ENT: Positive: Normal ENT inspection Neck: Positive: Supple Respiratory/Lung Sounds: Positive: Clear to Auscultation Cardiovascular: Positive: Normal Abdomen Description: Positive: Nontender Bowel Sounds: Positive: Present Diagnostics - Vital Signs Vital Signs Temp Pulse Resp BP Pulse Ox 01/22/18 18:09 35.7 C 84 18 155/93 97 - Laboratory Lab Statement: Any lab studies that have been ordered have been reviewed, and results considered in the medical decision making process. EENT Course/Dx - Diagnoses Provider Diagnoses: Maxillary sinusitis, acute Discharge - Sign-Out/Discharge Documenting (check all that apply): Patient Departure All imaging exams completed and their final reports reviewed: Yes - Discharge Plan Condition: Good Disposition: HOME Prescriptions: Amoxicillin PO (*) [Amoxicillin 875 MG (*)] 875 mg PO BID 7 Days #14 tab Fluticasone NASAL SPRAY 50MCG* [Flonase NASAL SPRAY 50MCG*] 2 spray BOTH NARES DAILY #1 btl Referrals: Law,Herbie, MD [Primary Care Provider] - - Billing Disposition and Condition Condition: GOOD Disposition: Home
== END 2018-01-22 18:40 | disposition home or self-care (01) ==
LOC: UCEAST 18:03
DX: J01.00 Acute maxillary sinusitis, unspecified (principal); E11.9 Type 2 diabetes mellitus without complications; Z79.84 Long term (current) use of oral hypoglycemic drugs; I10 Essential (primary) hypertension; Z88.8 Allergy status to other drugs, medicaments and biological substances
CPT/HCPCS: 99212; G0463

== ENCOUNTER 2018-09-16 14:50 | Emergency (ER) | payer OTHER ==
[2018-09-16 15:08] VITALS: BP 159/82
[2018-09-16] MEDS ORDERED: Albuterol/Ipratropium NEB.SOL* Albuterol 2.5 MG/Ipratropium 0.5 MG 3 ML INH ONE (15:20)
[2018-09-16] MEDS ORDERED: Acetaminophen TAB* 325 MG PO ONE (15:20)
[2018-09-16] MEDS ORDERED: Ibuprofen TAB* 600 MG PO ONE (15:20)
[2018-09-16] MEDS ORDERED: predniSONE TAB* 20 MG PO ONE (15:21)
[2018-09-16] MEDS ORDERED: Amoxicillin/Clavulanate TAB* 875 MG PO ONE (15:21)
--- NOTE | 2018-09-16 15:27 | ED ---
Respiratory - HPI Summary HPI Summary: 57 yr old male with the complaint of Sinus pressure, runny nose, post nasal drip , coughing of thick yellow sputum. Onset of symptoms in [place] about 5-6 days ago when he was on a [place] trip. The patient was put on amoxicillin but it has not improved anything. He states he has a history of asthma as a child. He has no other complaints. - History of Current Complaint Chief Complaint: UCRespiratory Stated Complaint: URI Time Seen by Provider: 09/16/18 15:15 Pain Intensity: 8 - Allergy/Home Medications Allergies/Adverse Reactions: Allergies Allergy/AdvReac Type Severity Reaction Status Date / Time ramipril AdvReac Mild Coughing Verified 09/16/18 15:08 Home Medications: Home Medications Chlorpheniramine/Dextromethorp [Cough-Cold Hbp Tablet] 1 tab PO ONCE PRN [History Confirmed 09/16/18] PMH/Surg Hx/FS Hx/Imm Hx Endocrine/Hematology History: Reports: Hx Diabetes - TYPE II Denies: Hx Thyroid Disease Cardiovascular History: Reports: Hx Hypertension - ON MEDICATION Respiratory History: Reports: Hx Asthma - A CHILD, Hx Chronic Bronchitis - in the past Denies: Hx Chronic Obstructive Pulmonary Disease (COPD) GI History: Denies: Hx Ulcer History: Reports: Hx Kidney Stones - 2000 Musculoskeletal History: Reports: Hx Orthopedic Injury, Hx Tendonitis Comment Only: Other Musculoskeletal History - surgery right elbow/shoulder Sensory History: Reports: Hx Cataracts - L eye, Hx Contacts or Glasses - GLASSES Denies: Hx Hearing Aid Opthamlomology History: Reports: Hx Cataracts - L eye, Hx Contacts or Glasses - GLASSES Neurological History: Reports: Hx Migraine - 1x/month - Cancer History Cancer Type, Location and Year: Pt has had 3 biopsy on prostate through years, enlarged prostate. Negative for CA as of now. - Surgical History Surgery Procedure, Year, and Place: APPY 2013. RIGHT SHOULDER SURGERY. Right elbow surgery August 2013. CATARACT LEFT EYE- 2012. HYPOSPADIA SURGERY A CHILD. TONSILLECTOMY CHILD Hx Anesthesia Reactions: No Infectious Disease History: No Infectious Disease History: Reports: Traveled Outside the [place] in Last 30 Days - [place] Denies: Hx Clostridium Difficile, Hx Hepatitis, Hx Human Immunodeficiency Virus (HIV), Hx of Known/Suspected MRSA, Hx Shingles, Hx Tuberculosis, Hx Known/ Suspected VRE, Hx Known/Suspected VRSA, History Other Infectious Disease - Family History Known Family History: Positive: None, Hypertension, Diabetes, Other - son has ulcerative colitis, mother and father have no rheumatologic co - Social History Occupation: Employed Full-time Alcohol Use: Occasionally Alcohol Amount: 1 Substance Use Type: Reports: None Hx Tobacco Use: No Smoking Status (MU): Never Smoked Tobacco Have You Smoked in the Last Year: No Review of Systems Positive: Fever, Chills Positive: Nasal Discharge Positive: Cough All Other Systems Reviewed And Are Negative: Yes Physical Exam Triage Information Reviewed: Yes Vital Signs On Initial Exam: Initial Vitals Temp Pulse Resp BP Pulse Ox 101.1 F 100 18 159/82 96 09/16/18 15:02 09/16/18 15:02 09/16/18 15:02 09/16/18 15:02 09/16/18 15:02 Vital Signs Reviewed: Yes Appearance: Positive: Well-Appearing, No Pain Distress Skin: Positive: Warm, Skin Color Reflects Adequate Perfusion, Dry Head/Face: Positive: Normal Head/Face Inspection Eyes: Positive: EOMI ENT: Positive: Pharyngeal erythema, Nasal congestion, TM red - left red, Sinus tenderness Neck: Positive: Nontender Respiratory/Lung Sounds: Positive: Wheezes - bilateral Cardiovascular: Positive: RRR, Pulses are Symmetrical in both Upper and Lower Extremities. Negative: Murmur, Rub Abdomen Description: Negative: Distended Musculoskeletal: Positive: Strength/ROM Intact Neurological: Positive: Sensory/Motor Intact, Alert, Oriented to Person Place, Time, CN Intact II-III, Normal Gait Psychiatric: Positive: Normal Diagnostics - Vital Signs Vital Signs Temp Pulse Resp BP Pulse Ox 09/16/18 15:02 101.1 F 100 18 159/82 96 - Laboratory Lab Statement: Any lab studies that have been ordered have been reviewed, and results considered in the medical decision making process. - Radiology chest pa lat Radiology Interpretation Completed By: Radiologist - NAD Re-Evaluation - Re-Evaluation First Eval Re-Evaluation Time: 15:51 Change: Improved Comment: Lungs are CTA after the neb. Disposition - Course Course Of Treatment: 57 yr old with sinusitis, acute bronchitis. Rx augmentin and also pred, and albuterol - Diagnoses Provider Diagnoses: Sinusitis, Acute bronchitis, Hypertension Discharge - Sign-Out/Discharge Documenting (check all that apply): Patient Departure All imaging exams completed and their final reports reviewed: Yes - Discharge Plan Condition: Good Disposition: HOME Prescriptions: Albuterol HFA INHALER* [Ventolin HFA Inhaler*] 1 - 2 puff INH Q6H PRN #1 mdi PRN Reason: Cough Amoxicillin/Clavulanate TAB* [Augmentin TAB 875*] 875 mg PO BID #20 tab predniSONE TAB* [Deltasone 20 MG TAB*] 40 mg PO DAILY #8 tab Patient Education Materials: Sinusitis (ED), Bronchospasm (ED), Hypertension ( ED) Forms: *Work Release Referrals: Herbie Courtney MD [Primary Care Provider] - 2 Days - Billing Disposition and Condition Condition: GOOD Disposition: Home
== END 2018-09-16 15:57 | disposition home or self-care (01) ==
LOC: UCEAST 14:50
DX: J32.9 Chronic sinusitis, unspecified (principal); J20.9 Acute bronchitis, unspecified; I10 Essential (primary) hypertension; E11.9 Type 2 diabetes mellitus without complications; Z88.8 Allergy status to other drugs, medicaments and biological substances
CPT/HCPCS: 71046; 99213; A9270-GY; G0463; J7512

== ENCOUNTER 2019-06-21 17:33 | Emergency (ER) | payer OTHER ==
[2019-06-21 17:46] VITALS: BP 147/93
--- NOTE | 2019-06-21 20:19 | UC ---
Respiratory Complaint HPI - HPI Summary HPI Summary: 3 DAYS OF SORE THROAT, PAIN WITH SWALLOWING, POSTNASAL DRAINAGE AND COUGH. RIGHT EYE HAS BECOME IRRITATED, RED AND HAS GREEN DISCHARGE. NO FEVER. - History of Current Complaint Chief Complaint: UCRespiratory Stated Complaint: SORE THROAT Time Seen by Provider: 06/21/19 17:37 Hx Obtained From: Patient Onset/Duration: Gradual Onset, Lasting Days, Still Present Timing: Constant Severity Initially: Moderate Severity Currently: Moderate Pain Intensity: 5 Pain Scale Used: 0-10 Numeric Character: Cough: Nonproductive Aggravating Factors: Nothing Alleviating Factors: Nothing Associated Signs And Symptoms: Positive: URI, Nasal Congestion. Negative: Dyspnea, Fever, Chills, Wheezing - Allergies/Home Medications Allergies/Adverse Reactions: Allergies Allergy/AdvReac Type Severity Reaction Status Date / Time ramipril AdvReac Mild Coughing Verified 06/21/19 17:46 Home Medications: Home Medications zzInsulin GLARGINE(*) [zzLantus(*)] 25 units SUBCUT BID 08/14/12 [History Confirmed 06/21/19] Losartan TAB* [Cozaar TAB*] 35 mg PO BID 06/08/17 [History Confirmed 06/21/19] Aspirin EC TAB* [Ecotrin EC Low Dose 81 MG*] 162 mg PO DAILY 09/16/17 [History Confirmed 06/21/19] Cetirizine* [ZyrTEC 10 MG TAB*] 10 mg PO DAILY 09/16/17 [History Confirmed 06/20] Empagliflozin [Jardiance] 10 mg PO DAILY 01/22/18 [History Confirmed 06/21/19] Multivitamin [Multivitamins] 1 cap PO DAILY 01/22/18 [History Confirmed 06/21/19 ] Albuterol HFA INHALER* [Ventolin HFA Inhaler*] 1 - 2 puff INH Q6H PRN #1 mdi 07/02 [Rx Confirmed 06/21/19] Amoxicillin PO (*) [Amoxicillin 500 MG CAP*] 1,000 mg PO Q12H #40 cap 06/21/19 [ Rx] Ciprofloxacin 0.3% OPTH.FLO* [Cipro 0.3% Opth*] 1 drop RIGHT EYE Q4H #1 btl 11/02 [Rx] Dulaglutide [Trulicity] 1 dose IM WEEKLY 06/21/19 [History Confirmed 06/21/19] PMH/Surg Hx/FS Hx/Imm Hx Endocrine History: Diabetes Cardiovascular History: Hypertension Respiratory History: Asthma - Surgical History Surgical History: Yes Surgery Procedure, Year, and Place: APPY 2013. RIGHT SHOULDER SURGERY. Right elbow surgery August 2013. CATARACT LEFT EYE- 2012. HYPOSPADIA SURGERY A CHILD. TONSILLECTOMY CHILD - Family History Known Family History: Positive: Hypertension, Diabetes, Other - son has ulcerative colitis, mother and father have no rheumatologic co - Social History Alcohol Use: Occasionally Alcohol Amount: 1 Substance Use Type: None Smoking Status (MU): Never Smoked Tobacco Have You Smoked in the Last Year: No Household Exposure Type: Cigarettes - Immunization History Most Recent Influenza Vaccination: 01/14/2013 Most Recent Tetanus Shot: 2010 Most Recent Pneumonia Vaccination: none Review of Systems All Other Systems Reviewed And Are Negative: Yes Constitutional: Positive: Negative Eyes: Positive: Eye Redness - RIGHT EYE DRAINAGE ENT: Positive: Sore Throat, Nasal Discharge Respiratory: Positive: Cough Cardiovascular: Positive: Negative Gastrointestinal: Positive: Negative Physical Exam Appearance: No Pain Distress, Well-Nourished, Ill-Appearing - FATIGUED Vital Signs: Initial Vital Signs Temp 98.4 F 06/21/19 17:43 Pulse 85 06/21/19 17:43 Resp 16 06/21/19 17:43 BP 147/93 06/21/19 17:43 Pulse Ox 99 06/21/19 17:43 Vital Signs Reviewed: Yes Eyes: Positive: Conjunctiva Inflamed - RIGHT EYE, Discharge - PURULENT DRAINAGE RIGHT EYE, Other: - PERRL, EOMI ENT: Positive: Hearing grossly normal, Pharynx normal, TMs normal Neck: Positive: Supple, Nontender, No Lymphadenopathy Respiratory Exam: Normal Cardiovascular Exam: Normal Abdomen Description: Positive: Soft Musculoskeletal: Positive: No Edema Neurological: Positive: Alert Psychological: Positive: Age Appropriate Behavior Skin: Negative: Rashes Respiratory Course/Dx - Differential Dx/Diagnosis Provider Diagnosis: Acute sinusitis, Right conjunctivitis Discharge ED - Sign-Out/Discharge Documenting (check all that apply): Patient Departure All imaging exams completed and their final reports reviewed: No Studies - Discharge Plan Condition: Stable Disposition: HOME Prescriptions: Amoxicillin PO (*) [Amoxicillin 500 MG CAP*] 1,000 mg PO Q12H #40 cap Ciprofloxacin 0.3% OPTH.FLO* [Cipro 0.3% Opth*] 1 drop RIGHT EYE Q4H #1 btl Patient Education Materials: Sinusitis (ED), Conjunctivitis (ED) Referrals: Herbie Courtney MD [Primary Care Provider] - If Needed Additional Instructions: YOUR RESPIRATORY/SINUS SYMPTOMS MAY BE VIRALLY MEDIATED BUT GIVEN YOUR HISTORY OF UNCONTROLLED DIABETES WE WILL COVER YOU WITH ANTIBIOTICS. TAKE THE MEDICINE FOR THE FULL COURSE. REST, HYDRATE, OTC MEDS NEEDED. SEEK FOLLOW-UP WITH YOUR PCP IF YOU ARE NOT IMPROVING OVER THE NEXT 1-2 WEEKS. - Billing Disposition and Condition Condition: STABLE Disposition: Home
== END 2019-06-21 18:14 | disposition home or self-care (01) ==
LOC: UCEAST 17:33
DX: J01.90 Acute sinusitis, unspecified (principal); H10.9 Unspecified conjunctivitis; J45.909 Unspecified asthma, uncomplicated; E11.9 Type 2 diabetes mellitus without complications; I10 Essential (primary) hypertension; Z88.8 Allergy status to other drugs, medicaments and biological substances; Z79.82 Long term (current) use of aspirin; Z79.899 Other long term (current) drug therapy; Z79.4 Long term (current) use of insulin; Z79.84 Long term (current) use of oral hypoglycemic drugs
CPT/HCPCS: 99212; G0463

== ENCOUNTER 2020-01-05 11:54 | Observation (INO) ==
[2020-01-05] MEDS ORDERED: NS 0.9% 1000 ml BAG 1,000 ML IV ONE (12:58)
[2020-01-05 13:20] LABS: ABS Basophils 0.1 10^3/ul (0-0.2); ABS Eosinophils 0.3 10^3/ul (0-0.6); ABS Lymphocytes 1.7 10^3/ul (1.0-4.8); ABS Monocytes 0.7 10^3/ul (0-0.8); ABS Neutrophils 4.2 10^3/ul (1.5-7.7); Eosinophil % 4.8 %; Hematocrit 53 % (42-52); Hemoglobin 18.1 g/dL (14.0-18.0); Lymphocyte % 24.8 %; Mean Corpuscular HGB Conc 34 g/dL (31-36); Mean Corpuscular Hemoglobin 32 pg (27-31); Mean Corpuscular Volume 94 fL (80-94); Mean Platelet Volume 7.2 fL (7.4-10.4); Nucleated Red Blood Cells % 0.2; Platelet Count 206 10^3/uL (150-450); Red Blood Count 5.62 10^6 /uL (4.18-5.48); Red Cell Distribution Width 14 % (10-15)
[2020-01-05 13:32] LABS: Albumin 4.4 g/dL (3.2-5.2); Albumin/Globulin Ratio 1.5 (1-3); BUN/Creatinine Ratio 22.2 (8-20); Calcium 9.4 mg/dL (8.6-10.3); EGFR African American 135.2 (>60); EGFR Non-African American 111.7 (>60); Globulin 2.9 g/dL (2-4); Total Bilirubin 0.7 mg/dL (0.2-1.0); Total Protein 7.3 g/dL (6.4-8.9)
[2020-01-05 13:48] LABS: TSH Ultra Thyroid Stim Horm 1.12 mcIU/mL (0.34-5.60)
[2020-01-05 13:54] LABS: Magnesium 2.4 mg/dL (1.9-2.7); Potassium 4.4 mmol/L (3.5-5.0)
[2020-01-05] MEDS ORDERED: Iodixanol (CONTRAST) 320 MG/ML 100 ML SDV IV ONE (14:31)
[2020-01-05] MEDS ORDERED: Dextrose 50% Syringe 50 ml 25 GM/50 ML SYRINGE IV PUSH PRN (17:53)
[2020-01-05] MEDS: Enoxaparin 40 MG/0.4 ML SYR SUBCUT SCH (18:28)
[2020-01-05 19:02] LABS: Urine Appearance Clear; Urine Bilirubin Negative (Negative); Urine Blood Negative (Negative); Urine Color Straw; Urine Glucose 3+(>=500 mg/dL) (Negative); Urine Ketones Negative (Negative); Urine Nitrite Negative (Negative); Urine Protein Negative (Negative); Urine Specific Gravity 1.047 (1.010-1.030); Urine Urobilinogen Negative (Negative)
[2020-01-05] MEDS: Insulin GLARGINE 100 un/ml 10 ml VIAL SUBCUT SCH (20:14)
[2020-01-06 07:21] LABS: ABS Eosinophils 0.4 10^3/ul (0-0.6); ABS Lymphocytes 2.3 10^3/ul (1.0-4.8); ABS Monocytes 0.5 10^3/ul (0-0.8); ABS Neutrophils 2.9 10^3/ul (1.5-7.7); Eosinophil % 6.3 %; Hematocrit 50 % (42-52); Hemoglobin 17.6 g/dL (14.0-18.0); Mean Corpuscular HGB Conc 35 g/dL (31-36); Mean Corpuscular Hemoglobin 33 pg (27-31); Mean Corpuscular Volume 94 fL (80-94); Mean Platelet Volume 7.3 fL (7.4-10.4); Nucleated Red Blood Cells % 0.1; Platelet Count 193 10^3/uL (150-450); Red Blood Count 5.33 10^6 /uL (4.18-5.48); Red Cell Distribution Width 14 % (10-15); White Blood Count 6.2 10^3/uL (3.5-10.8)
[2020-01-06 07:30] LABS: BUN/Creatinine Ratio 16.7 (8-20); Calcium 8.8 mg/dL (8.6-10.3); EGFR African American 135.2 (>60); EGFR Non-African American 111.7 (>60)
[2020-01-06 07:32] LABS: HDL Cholesterol 32.9 mg/dL
[2020-01-06] MEDS: Insulin GLARGINE 100 un/ml 10 ml VIAL SUBCUT SCH (08:48)
[2020-01-06] MEDS ORDERED: Aspirin EC 81 mg TAB.EC (enteric coated) PO SCH (09:00)
[2020-01-06] MEDS ORDERED: Perflutren Lipid Microsphere 3 ML VIAL ONE (09:59)
[2020-01-06] MEDS: Enoxaparin 40 MG/0.4 ML SYR SUBCUT SCH (16:27)
[2020-01-06 16:40] VITALS: BP 154/82
== END 2020-01-06 18:30 | disposition home or self-care (01) ==
LOC: ED 11:54 → MEDTELE 11:54
PROVIDERS: ADMIT Internal Medicine; ATTEND Internal Medicine